=== PATIENT | male | born 1995 | race Caucasian/White ===

== ENCOUNTER 2019-10-20 22:07 | Emergency (ER) | payer SELFPAY ==
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
[2019-10-20 22:18] VITALS: BP 117/80; PULSE 117
[2019-10-20] MEDS ORDERED: Diphtheria,Pertussis(Acell),Tetanus Vaccine 0.5 ML Syringe IM ONE (22:23)
== END 2019-10-20 22:40 | disposition home or self-care (01) ==
LOC: JD.ED 22:07
DX: T23.202A Burn of second degree of left hand, unspecified site, initial encounter (principal); F32.9 Major depressive disorder, single episode, unspecified; Z79.899 Other long term (current) drug therapy; Z23 Encounter for immunization; X08.8XXA Exposure to other specified smoke, fire and flames, initial encounter
CPT/HCPCS: 16020; 90471; 90715; 99283

== ENCOUNTER 2020-02-23 09:06 | Emergency (ER) | payer BC ==
[2020-02-23] MEDS ORDERED: Ondansetron 4 MG Tab.DIS PO ONE (09:59)
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
[2020-02-23 10:51] VITALS: BP 115/80; PULSE 92
--- NOTE | 2020-02-25 10:24 | CT ---
PROCEDURE INFORMATION: Exam: CT Head Without Contrast Exam date and time: 02/23/2020 10:05 AM Age: 24 years old Clinical indication: Pain; Other: Frontal headache TECHNIQUE: Imaging protocol: Computed tomography of the head without contrast. COMPARISON: No relevant prior studies available. FINDINGS: Brain: Normal. No hemorrhage. Unremarkable white matter. No mass effect. Cerebral ventricles: No ventriculomegaly. Bones/joints: Unremarkable. No acute fracture. Paranasal sinuses: Mild mucoperiosteal thickening of the paranasal sinuses. Mastoid air cells: Visualized mastoid air cells are well aerated. Soft tissues: Unremarkable. IMPRESSION: Mild mucoperiosteal thickening of the paranasal sinuses but no evidence of acute intracranial pathology. Thank you for allowing us to participate in the care of your patient. Dictated and Authenticated by: Arlene Hutchinson MD 02/23/2020 11:37 AM Central Time ([place] & [place]) MTDMary
== END 2020-02-23 10:08 | disposition home or self-care (01) ==
LOC: JD.ED 09:06
DX: S06.0X9A Concussion with loss of consciousness of unspecified duration, initial encounter (principal); K92.0 Hematemesis; F90.9 Attention-deficit hyperactivity disorder, unspecified type; F32.9 Major depressive disorder, single episode, unspecified; F17.210 Nicotine dependence, cigarettes, uncomplicated; Z79.899 Other long term (current) drug therapy; W22.8XXA Striking against or struck by other objects, initial encounter
CPT/HCPCS: 70450; 99285; A9270; 99283

== ENCOUNTER 2020-02-29 05:55 | Emergency (ER) | payer BC ==
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
[2020-02-29] MEDS ORDERED: Ondansetron 4 MG Tab.DIS PO ONE (07:08)
[2020-02-29] MEDS ORDERED: FLU VACC QS2020-21(6MOS UP)/PF 60 MCG/0.5 ML SYRINGE IM ONE (07:15)
[2020-02-29] MEDS ORDERED: Sodium Chloride 0.9% 1,000 ML IV ONE (07:33)
--- NOTE | 2020-02-29 09:12 | CR ---
PROCEDURE INFORMATION: Exam: XR Chest, 2 Views Exam date and time: 02/29/2020 8:29 AM Age: 24 years old Clinical indication: Injury or trauma; Blunt trauma (contusions or hematomas); Patient HX: Fall, left lower chest pain TECHNIQUE: Imaging protocol: XR of the chest Views: 2 views. COMPARISON: No relevant prior studies available. FINDINGS: Lungs: 1 cm nodular density projecting in the left lower lung between the anterior 5th and 6th ribs. This could be a nipple shadow. Repeat frontal film nipple markers is recommended. No consolidation. Pleural space: Unremarkable. No pleural effusion. No pneumothorax. Heart/Mediastinum: Unremarkable. No cardiomegaly. Bones/joints: Thoracic curve, convex to the right. Reversal of the normal thoracic curve in anterior posterior dimensions. IMPRESSION: 1. Left lower lobe pulmonary nodule versus prominent nipple shadow. Recommend frontal film with nipple markers. 2. Reversal of normal AP thoracic curve, likely developmental. Thank you for allowing us to participate in the care of your patient. Dictated and Authenticated by: Leigh Ann Ni MD 02/29/2020 9:48 AM Central Time ([place] & [place]) DAVIS
[2020-02-29 09:28] VITALS: BP 120/70; PULSE 80
== END 2020-02-29 09:28 | disposition home or self-care (01) ==
LOC: JD.ED 05:55
DX: R55 Syncope and collapse (principal); F10.120 Alcohol abuse with intoxication, uncomplicated; R74.8 Abnormal levels of other serum enzymes; F17.210 Nicotine dependence, cigarettes, uncomplicated; Z23 Encounter for immunization
CPT/HCPCS: 36415; 71046; 80053; 80306; 80307; 83735; 85007; 85027; 85379; 90471; 90686; 93005; 99284; A9270; J7030; 93010; G0008

== ENCOUNTER 2020-06-27 01:02 | Emergency (ER) | payer OTHER, BC ==
[2020-06-27 01:13] VITALS: BP 128/92; PULSE 88
--- NOTE | 2020-06-27 01:37 | EDM.PDOC ---
ED HPI GENERAL MEDICAL PROBLEM - General Chief Complaint: Upper Extremity Injury/Pain Stated Complaint: FINGER INJURY RT HAND Time Seen by Provider: 06/27/20 01:22 Source of Information: Reports: Patient History Limitations: Reports: No Limitations - History of Present Illness INITIAL COMMENTS - FREE TEXT/NARRATIVE: Mr. Carpenter is a very pleasant 25-year-old man who now presents the ED after suffering a laceration to the distal pad of his right fifth finger, when a piece of metal fell on it while at work around 00:45 this morning. He is otherwise uninjured. The patient states that his last tetanus vaccination was less than 1 year ago. Here in the ED, the patient is found to be hemodynamically stable, afebrile, saturating 92% on room air. Other than minna's right fifth finger injury, the patient denies having a recent fever, chills, sore throat, ear pain, nasal or sinus congestion, cough, dyspnea, chest pain, palpitations, nausea, vomiting, constipation, diarrhea, abdominal pain, urinary symptoms, recent weight gain or weight loss, recent bloody bowel movements or black bowel movements, recent joint aches, headaches, or rashes. The patient's PCP is Dr. Troy Velazquez, at [facility]. He received an influenza vaccine on 02/29/2020. Right Finger-Little Pain Score (Numeric/FACES): 5 - Related Data Allergies Allergy/AdvReac Type Severity Reaction Status Date / Time No Known Allergies Allergy Verified 06/27/20 01:13 Home Meds: Home Meds . [No Known Home Meds] 02/29/20 [History] Past Medical History Gastrointestinal History: Reports: Gastritis (untreated) Psychiatric History: Reports: ADHD (untreated), Addiction (alcohol), Depression (untreated) - Past Surgical History HEENT Surgical History: Reports: Oral Surgery (dental extractions) Social & Family History - Tobacco Use Tobacco Use Status *Q: Current Every Day Tobacco User Years of Tobacco use: 10 Packs/Tins Daily: 0.4 Tobacco Use Comment: Started smoking at 15 yrs old - Caffeine Use Caffeine Use: Reports: None - Alcohol Use Alcohol Use History: Yes Days Per Week of Alcohol Use: 7 Number of Drinks Per Day: 8 Total Drinks Per Week: 56 Alcohol Use Frequency: Daily - Recreational Drug Use Recreational Drug Use: No - Living Situation & Occupation Living situation: Reports: , with Significant Other (Girlfriend) Occupation: Employed ([employer]) Review of Systems - Review of Systems Review Of Systems: Comprehensive ROS is negative, except as noted in HPI. ED EXAM, GENERAL - Physical Exam Exam: See Below Exam Limited By: No Limitations General Appearance: Alert, WD/WN, No Apparent Distress, Anxious Extremities: Other (There is an approximately 1 cm of laceration oriented tangentially to the axis of the patient's right fifth finger, over the volar distal pad. The laceration is irregular, with part of the laceration being full-thickness, part of it not, however, the edges of the wound appose each other. No bleedin) Course - Vital Signs Last Recorded V/S: Last Vital Signs Temp 36.7 C 06/27/20 01:09 Pulse 88 06/27/20 01:09 Resp 18 06/27/20 01:09 BP 128/92 H 06/27/20 01:09 Pulse Ox 99 06/27/20 01:09 - Re-Assessments/Exams Free Text/Narrative Re-Assessment/Exam: 06/27/20 01:32 As above, the patient suffered a laceration to the pad of his right fifth finger at work tonight when a piece of steel fell on it. The wound is a little jagged, parts of which appear to be full-thickness, other parts which are not, but the edges appose each other, therefore I do not see an indication for either sutures or even Dermabond. The wound should heal nicely if it is kept clean. I applied a bandage to the end of his finger. Departure - Departure Time of Disposition: 01:33 Disposition: Home, Self-Care 01 Condition: Good Clinical Impression: Laceration of finger, right - Discharge Information *PRESCRIPTION DRUG MONITORING PROGRAM REVIEWED*: Not Applicable *COPY OF PRESCRIPTION DRUG MONITORING REPORT IN PATIENT PETER: Not Applicable Instructions: Nonsutured Laceration Care Referrals: Troy Velazquez MD [Primary Care Provider] - Forms: ED Department Discharge Additional Instructions: You were seen in the emergency room after suffering a laceration to the pad of your right pinky finger, when a piece of metal fell on it at work. On examination, the wound is minor enough that sutures are not necessary. Keep the wound clean with ordinary soap and water when you bathe. Pat dry, then apply a clean bandage, daily. We do not recommend that you allow the wound to get wet or dirty in between bathing, however, if it does, rewash the wound, pat it dry, then apply a new clean bandage. You may take Tylenol or ibuprofen as needed for discomfort. If any other problems, please do not hesitate to return to the ER. Sepsis Event Note (ED) - Evaluation Sepsis Screening Result: No Definite Risk - Focused Exam Vital Signs: Vital Signs Temp Pulse Resp BP Pulse Ox 06/27/20 01:09 36.7 C 88 18 128/92 H 99
== END 2020-06-27 01:40 | disposition home or self-care (01) ==
LOC: JD.ED 01:02
DX: S61.216A Laceration without foreign body of right little finger without damage to nail, initial encounter (principal); Z72.0 Tobacco use; W20.8XXA Other cause of strike by thrown, projected or falling object, initial encounter
CPT/HCPCS: 99282

== ENCOUNTER 2020-10-01 14:47 | Emergency (ER) | payer BC, OTHER ==
--- NOTE | 2020-10-01 15:04 | EDM.PDOCBH ---
<Wero Landrum - Last Filed: 10/02/20 06:06> ED HPI GENERAL MEDICAL PROBLEM - General Chief Complaint: Drug or Alcohol Abuse Stated Complaint: DETOX Time Seen by Provider: 10/01/20 15:04 - Related Data Allergies Allergy/AdvReac Type Severity Reaction Status Date / Time bupropion [From Wellbutrin] AdvReac Severe Seizure Verified 10/01/20 15:03 Home Meds: Home Meds . [No Known Home Meds] 02/29/20 [History] COURSE, BEHAVIORAL HEALTH COMP - Course Medical Clearance: 10/02/20 06:06 The patient is awake. I evaluated him. He corrected that he ordinarily drinks 1/2 to 1 L of vodka or tequila per day, not 1.5 L. He states that his last period of sobriety was about 3 years ago, for 4 days, but he also states that he did not drink as much back then. He has never suffered withdrawal symptoms more severe than tremulousness. At present, he states that he feels shaky, and has mild abdominal pain, although he acknowledges that he chronically has abdominal pain. He states that he feels slightly nauseated, and also slightly hungry. He appears to be in no acute distress. The patient states that he would like to stop drinking, and that he has been considering doing so for the past 2 weeks. He states that he has been in contact with [facility], who recommended that he come to the ED to undergo "detox", and once medically stable, they would consider taking him to [facility]. Given that the patient's alcohol level was substantially elevated at 0.52 last night, yet he was able to walk and talk, this indicates a significant tolerance to alcohol. Despite his young age, no comorbidities (such as pneumonia), and no prior history of severe alcohol withdrawal symptoms, the patient is still at somewhat increased risk for the development of severe alcohol withdrawal, therefore I am recommending that we admit him to the hospital for the next day or 2 to see how he does. The patient is agreeable. 10/02/20 06:[address] Zepeda, Hospitalist, at 06:10. He accepted the patient for placement into observation on the medical floor, however, he would like us to swab the patient for the SARS-CoV-2 virus first. Departure - Departure Time of Disposition: 06:15 Disposition: Refer to Observation Condition: Good Clinical Impression: Alcohol dependence, daily use Alcohol intoxication Qualifiers: Complication of substance-induced condition: uncomplicated Qualified Code(s): F10.920 - Alcohol use, unspecified with intoxication, uncomplicated - Discharge Information *PRESCRIPTION DRUG MONITORING PROGRAM REVIEWED*: Not Applicable *COPY OF PRESCRIPTION DRUG MONITORING REPORT IN PATIENT PETER: Not Applicable Referrals: Troy Velazquez MD [Primary Care Provider] - Forms: ED Department Discharge <Wenceslao Alva - Last Filed: 10/02/20 07:54> ED HPI GENERAL MEDICAL PROBLEM - General Source of Information: Reports: Patient History Limitations: Reports: No Limitations - History of Present Illness INITIAL COMMENTS - FREE TEXT/NARRATIVE: 25-year-old male presents to the ED in the accompaniment of his father. He presents to the ED seeking help to stop drinking alcohol. He reports he is been drinking alcohol since age 15. He started drinking very heavily at age 20 and is continued to do so until now. He used to drink whiskey primarily but his girlfriend made him stop drinking whiskey as it changed his mood severely. Lately he has been drinking a combination of vodka and tequila. Last drink was approximately 20 minutes before coming to the ED. On average drinks a liter and a half daily. He reports dry heaves and vomiting sometimes with apparent blood in his emesis in the mornings. Is also appreciated chronic diarrhea with perhaps some dark looking stools at times. He states he drinks in the morning to take the tremors away. And calm his stomach. He rarely eats solid foods unless somebody cooks it for him. He appreciates that he is losing weight. He is unemployed. He smokes a pack of cigarettes at least daily. Denies any street drug use. Denies any history of IV drug abuse. He reports having seizures after stopping drinking alcohol in the past as well as hallucinations. Onset: Other (Chronic) Duration: Chronic (Chronic alcohol use) Location: Reports: Abdomen (Currently having some upper abdominal discomfort burning in nature. Mild associated nausea. No vomiting) Quality: Reports: Other Severity: Moderate Improves with: Reports: None, Other Worsens with: Reports: None Context: Reports: Other (Chronic alcoholism). Denies: Activity (Drinking more alcohol usually makes his stomach feel better), Exercise, Lifting, Sick Contact, Trauma Associated Symptoms: Reports: Cough, Loss of Appetite, Malaise, Nausea/Vomiting (Nausea with no vomiting), Weakness ( this morning). Denies: Confusion, Chest Pain, cough w sputum, Diaphoresis, Fever/Chills, Headaches, Rash, Seizure, Shortness of Breath, Syncope Treatments STATIONS SUPERINTENDENT: Reports: Other (see below) (None.) Past Medical History - Past Health History Medical/Surgical History: Denies Medical/Surgical History Other Cardiovascular History: palpitations Gastrointestinal History: Reports: Gastritis (untreated) Neurological History: Reports: Concussion Psychiatric History: Reports: ADHD (untreated), Addiction (alcohol), Depression (untreated) - Past Surgical History HEENT Surgical History: Reports: Oral Surgery (dental extractions) Social & Family History - Family History Family Medical History: No Pertinent Family History - Caffeine Use Caffeine Use: Reports: None - Living Situation & Occupation Living situation: Reports: , with Significant Other (Girlfriend) Occupation: Employed ([employer]) ED ROS GENERAL - Review of Systems Review Of Systems: See Below Constitutional: Reports: Malaise, Weakness, Fatigue, Decreased Appetite, Weight Loss. Denies: Fever, Chills HEENT: Reports: No Symptoms Respiratory: Reports: Shortness of Breath, Wheezing, Cough, Sputum. Denies: Pleuritic Chest Pain (Sometimes on heavy exertion. Occasional wheezing), Hemoptysis Cardiovascular: Reports: Dyspnea on Exertion. Denies: Chest Pain (Smoker's cough worse in the morning. Occasional brown sputum production), Blood Pressure Problem, Claudication, Edema, Lightheadedness, Orthopnea, Palpitations (Occasional on heavy exertion.) Endocrine: Reports: Fatigue GI/Abdominal: Reports: Abdominal Pain (Abdominal pain primarily epigastric right upper quadrant of the abdomen with no radiation into the back.), Other (Has no documented history of cirrhosis of the liver or pancreatitis) : Reports: Frequency Musculoskeletal: Reports: Back Pain Skin: Reports: Bruising (Appreciates that he bruises a bit easier than normal.) Neurological: Reports: Headache, Difficulty Walking, Weakness, Other (Recurrent falls when intoxicated.). Denies: Confusion, Dizziness, Numbness, Syncope, Tingling, Tremors (Does feel like he is offkilter walking at times.), Trouble Speaking, Change in Speech, Gait Disturbance Psychiatric: Reports: Anxiety, Depression, Mood Lability, Other (Poor sleeping with chronic insomnia.). Denies: Suicidal Ideation (Denies at this time. He admits he has had intermittent suicidal ideation over the years feels guilty about drinking.) Hematologic/Lymphatic: Reports: No Symptoms Immunologic: Reports: No Symptoms ED EXAM, BEHAVIORAL HEALTH - Physical Exam Exam: See Below Exam Limited By: Other (Mildly intoxicated at this time.) General Appearance: Alert, Mild Distress (He appears very tired. Strong smell of alcohol on his breath.), Other (Temperature is 37.1 degrees. Heart rate was 118 and sinus tachycardia on the monitor but quickly came down to 100/min. Respiratory of 20 with O2 sats of 97% room air. Initial BP was 147/103. It is currently 144/101 suggesting he may have an underlying hypertensive issue.) Eye Exam: Bilateral Eye: Conjunctival Injection (Bilaterally.), Nystagmus (Nystagmus on lateral gaze.), Periorbital Changes (Dark circles under both eyes combined with not sleeping well.), PERRL Throat/Mouth: No Airway Compromise, Other (Tongue is very dry and coated.). No: Normal Teeth ( Dentition is in very poor condition.), Normal Gums, Normal Oropharynx Head: Atraumatic (Oropharynx is diffusely erythematous from cigarette smoking), Normocephalic, Other Neck: Normal Inspection, Supple, Non-Tender, Full Range of Motion. No: Lymphadenopathy (L), Lymphadenopathy (R) Respiratory/Chest: Lungs Clear, Normal Breath Sounds, No Accessory Muscle Use, Respiratory Distress (Mild tachypnea at rest.). No: No Respiratory Distress, Decreased Breath Sounds, Rales, Rhonchi, Wheezing Cardiovascular: Normal Peripheral Pulses, No Edema (Tachycardia at 106/min on my exam.), No Gallop, No Murmur, No Rub, Tachycardia GI/Abdominal: Normal Bowel Sounds, Soft, No Organomegaly, No Abnormal Bruit, No Mass, Pelvis Stable, Tender (Tenderness in the epigastrium), Other (No surgical scars). No: Guarding, Rigid, Rebound (Male) Exam: No Hernia Back Exam: Normal Inspection, Full Range of Motion. No: CVA Tenderness (L), CVA Tenderness (R) Extremities: Normal Inspection, Normal Range of Motion, Non-Tender, No Pedal Edema, Other (Patient has an ecchymoses upper outer left arm and above his iliac crest from anterior to posteriorly crest on the right side with a superficial abrasion which he claims he fell and got hurt) Neurological: Alert, Normal Mood/Affect, CN II-XII Intact, Normal Cognition, No Motor/Sensory Deficits, Oriented x 3. No: Normal Reflexes Psychiatric: Alert, Normal Affect, Normal Cognition, Normal Mood, Oriented Skin Exam: Warm, Dry, Intact, Ecchymosis (8 cm x 8 cm superficial abrasion with ecchymoses above his anterior posterior iliac spine right side.) #1 Interpretation EKG Date: 10/01/20 Time: 15:24 Rhythm: Other (Sinus tachycardia) Rate (Beats/Min): 101 [place]: Normal P-Wave: Enlarged (Consider left atrial hypertrophy) QRS: Other (Borderline criteria for left ventricular hypertrophy likely normal for his age) ST-T: Other (Nonspecific T wave flattening V5 and V6.) QT: Normal EKG Interpretation Comments: Borderline ECG COURSE, BEHAVIORAL HEALTH COMP - Course Vital Signs: Last Vital Signs Temp 37.4 C 10/02/20 07:27 Pulse 80 10/02/20 07:27 Resp 14 10/02/20 07:27 BP 117/69 10/02/20 07:27 Pulse Ox 95 10/02/20 07:27 Orders, Labs, Meds: Active Orders 24 hr Category Date Time Status Admission Status [Patient Status] [ADT] Routine ADT 10/02/20 07:50 Ordered EKG Documentation Completion [RC] STAT Care 10/01/20 15:18 Active Oxygen Therapy, ED [RC] ASDIRECTED Care 10/01/20 16:15 Active Dextrose 5%-0.9% NaCl [Dextrose 5%-Normal Saline] 1,000 Med 10/02/20 07:15 Active ml IV ASDIRECTED Dextrose 5%-Lactated Ringers 1,000 ml Med 10/01/20 15:30 Active IV ASDIRECTED Lactated Ringers [Ringers, Lactated] 1,000 ml Med 10/01/20 16:45 Active IV ASDIRECTED Medication Orders Dextrose/Lactated Ringer's (Dextrose 5%-Lactated Ringers) 1,000 mls @ 999 mls/hr IV ASDIRECTED SUNDAR Last Admin: 10/01/20 15:33 Dose: 999 mls/hr Documented by: MORKJOR Lactated Ringer's (Ringers, Lactated) 1,000 mls @ 250 mls/hr IV ASDIRECTED [facility] Last Admin: 10/01/20 17:15 Dose: 250 mls/hr Documented by: KALEB Dextrose/Sodium Chloride (Dextrose 5%-Normal Saline) 1,000 mls @ 150 mls/hr IV ASDIRECTED [facility] Last Admin: 10/02/20 07:24 Dose: 150 mls/hr Documented by: MENDEZ Laboratory Tests 10/01/20 10/01/20 10/01/20 Range/Units 15:21 15:21 15:21 WBC 5.42 (4.23-9.07) K/mm3 RBC 4.96 (4.63-6.08) M/mm3 Hgb 15.7 D (13.7-17.5) gm/dl Hct 45.5 (40.1-51.0) % MCV 91.7 (79.0-92.2) fl MCH 31.7 (25.7-32.2) pg MCHC 34.5 (32.2-35.5) g/dl RDW Std Deviation 45.1 H (35.1-43.9) fL Plt Count 203 D (163-337) K/mm3 MPV 8.7 L (9.4-12.3) fl Neut % (Auto) 56.1 (34.0-67.9) % Lymph % (Auto) 30.4 (21.8-53.1) % [place] % (Auto) 7.7 (5.3-12.2) % Eos % (Auto) 4.1 (0.8-7.0) Baso % (Auto) 1.5 H (0.1-1.2) % Neut # (Auto) 3.04 (1.78-5.38) K/mm3 Lymph # (Auto) 1.65 (1.32-3.57) K/mm3 [place] # (Auto) 0.42 (0.30-0.82) K/mm3 Eos # (Auto) 0.22 (0.04-0.54) K/mm3 Baso # (Auto) 0.08 (0.01-0.08) K/mm3 PT 11.4 (9.7-12.0) SECONDS INR 1.07 APTT 25.9 (21.7-31.4) SECONDS Sodium 145 (136-145) mEq/L Potassium 3.8 (3.5-5.1) mEq/L Chloride 104 (98-107) mEq/L Carbon Dioxide 24 (21-32) mEq/L Anion Gap 20.8 H (5-15) BUN 9 (7-18) mg/dL Creatinine 0.9 (0.7-1.3) mg/dL Est Cr Clr Drug Dosing 120.02 mL/min Estimated GFR (MDRD) > 60 (>60) mL/min BUN/Creatinine Ratio 10.0 L (14-18) Glucose 143 H (70-99) mg/dL Calcium 8.4 L (8.5-10.1) mg/dL Magnesium 2.5 H (1.8-2.4) mg/dL Total Bilirubin 0.8 (0.2-1.0) mg/dL AST 114 H (15-37) U/L ALT 90 H (16-63) U/L Alkaline Phosphatase 85 (46-116) U/L C-Reactive Protein <0.2 (<1.0) mg/dL Total Protein 7.8 (6.4-8.2) g/dl Albumin 4.4 (3.4-5.0) g/dl Globulin 3.4 gm/dL Albumin/Globulin Ratio 1.3 (1-2) Lipase 116 (73-393) U/L Urine Color (Yellow) Urine Appearance (Clear) Urine pH (5.0-8.0) Ur Specific [place] (1.005-1.030) Urine Protein (Negative) Urine Glucose (UA) (Negative) Urine Ketones (Negative) Urine Occult Blood (Negative) Urine Nitrite (Negative) Urine Bilirubin (Negative) Urine Urobilinogen (0.2-1.0) Ur Leukocyte Esterase (Negative) Urine RBC (0-5) /hpf Urine WBC (0-5) /hpf Ur Squamous Epith Cells (0-5) /hpf Urine Bacteria (FEW) /hpf Urine Mucus (FEW) /hpf Urine Opiates Screen (GIHXJI=104) Ur Buprenorphine Scrn (CUTOFF=10) Ur Oxycodone Screen (FVE8SW=741) Urine Methadone Screen (BAD4XQ=553) Ur Propoxyphene Screen (JBMINE=487) Ur Barbiturates Screen (VFBKWO=305) Ur Tricyclics Screen (UIGKOH=278) Ur Phencyclidine Scrn (CUTOFF=25) Ur Amphetamine Screen (KMDKGJ=196) U Methamphetamines Scrn (KGCKRV=646) U Benzodiazepines Scrn (NTQXCK=904) U Cocaine Metab Screen (VVSIGQ=669) U Marijuana (THC) Screen (CUTOFF=50) Ethyl Alcohol 0.52 (0.00) gm% Hepatitis C Antibody (NEGATIVE) SARS-CoV-2 RNA (GOSIA) (NEGATIVE) 10/01/20 10/01/20 10/01/20 Range/Units 15:21 15:49 15:49 WBC (4.23-9.07) K/mm3 RBC (4.63-6.08) M/mm3 Hgb (13.7-17.5) gm/dl Hct (40.1-51.0) % MCV (79.0-92.2) fl MCH (25.7-32.2) pg MCHC (32.2-35.5) g/dl RDW Std Deviation (35.1-43.9) fL Plt Count (163-337) K/mm3 MPV (9.4-12.3) fl Neut % (Auto) (34.0-67.9) % Lymph % (Auto) (21.8-53.1) % [place] % (Auto) (5.3-12.2) % Eos % (Auto) (0.8-7.0) Baso % (Auto) (0.1-1.2) % Neut # (Auto) (1.78-5.38) K/mm3 Lymph # (Auto) (1.32-3.57) K/mm3 [place] # (Auto) (0.30-0.82) K/mm3 Eos # (Auto) (0.04-0.54) K/mm3 Baso # (Auto) (0.01-0.08) K/mm3 PT (9.7-12.0) SECONDS INR APTT (21.7-31.4) SECONDS Sodium (136-145) mEq/L Potassium (3.5-5.1) mEq/L Chloride (98-107) mEq/L Carbon Dioxide (21-32) mEq/L Anion Gap (5-15) BUN (7-18) mg/dL Creatinine (0.7-1.3) mg/dL Est Cr Clr Drug Dosing mL/min Estimated GFR (MDRD) (>60) mL/min BUN/Creatinine Ratio (14-18) Glucose (70-99) mg/dL Calcium (8.5-10.1) mg/dL Magnesium (1.8-2.4) mg/dL Total Bilirubin (0.2-1.0) mg/dL AST (15-37) U/L ALT (16-63) U/L Alkaline Phosphatase (46-116) U/L C-Reactive Protein (<1.0) mg/dL Total Protein (6.4-8.2) g/dl Albumin (3.4-5.0) g/dl Globulin gm/dL Albumin/Globulin Ratio (1-2) Lipase (73-393) U/L Urine Color Light yellow (Yellow) Urine Appearance Clear (Clear) Urine pH 6.0 (5.0-8.0) Ur Specific [place] 1.015 (1.005-1.030) Urine Protein Negative (Negative) Urine Glucose (UA) Negative (Negative) Urine Ketones Negative (Negative) Urine Occult Blood Negative (Negative) Urine Nitrite Negative (Negative) Urine Bilirubin Negative (Negative) Urine Urobilinogen 0.2 (0.2-1.0) Ur Leukocyte Esterase Negative (Negative) Urine RBC 0-5 (0-5) /hpf Urine WBC Not seen (0-5) /hpf Ur Squamous Epith Cells 0-5 (0-5) /hpf Urine Bacteria Not seen (FEW) /hpf Urine Mucus Not seen (FEW) /hpf Urine Opiates Screen Negative (XVSHZH=690) Ur Buprenorphine Scrn Negative (CUTOFF=10) Ur Oxycodone Screen Negative (VEY9JP=109) Urine Methadone Screen Negative (OHP4XR=344) Ur Propoxyphene Screen Negative (MAGVQY=736) Ur Barbiturates Screen Negative (SRDJVM=453) Ur Tricyclics Screen Negative (QMQTCK=263) Ur Phencyclidine Scrn Negative (CUTOFF=25) Ur Amphetamine Screen Negative (IVDHMH=456) U Methamphetamines Scrn Negative (OMEXBZ=670) U Benzodiazepines Scrn Negative (GSGMCC=278) U Cocaine Metab Screen Negative (SMVOFZ=265) U Marijuana (THC) Screen Negative (CUTOFF=50) Ethyl Alcohol (0.00) gm% Hepatitis C Antibody Negative (NEGATIVE) SARS-CoV-2 RNA (GOSIA) (NEGATIVE) 10/02/20 Range/Units 06:19 WBC (4.23-9.07) K/mm3 RBC (4.63-6.08) M/mm3 Hgb (13.7-17.5) gm/dl Hct (40.1-51.0) % MCV (79.0-92.2) fl MCH (25.7-32.2) pg MCHC (32.2-35.5) g/dl RDW Std Deviation (35.1-43.9) fL Plt Count (163-337) K/mm3 MPV (9.4-12.3) fl Neut % (Auto) (34.0-67.9) % Lymph % (Auto) (21.8-53.1) % [place] % (Auto) (5.3-12.2) % Eos % (Auto) (0.8-7.0) Baso % (Auto) (0.1-1.2) % Neut # (Auto) (1.78-5.38) K/mm3 Lymph # (Auto) (1.32-3.57) K/mm3 [place] # (Auto) (0.30-0.82) K/mm3 Eos # (Auto) (0.04-0.54) K/mm3 Baso # (Auto) (0.01-0.08) K/mm3 PT (9.7-12.0) SECONDS INR APTT (21.7-31.4) SECONDS Sodium (136-145) mEq/L Potassium (3.5-5.1) mEq/L Chloride (98-107) mEq/L Carbon Dioxide (21-32) mEq/L Anion Gap (5-15) BUN (7-18) mg/dL Creatinine (0.7-1.3) mg/dL Est Cr Clr Drug Dosing mL/min Estimated GFR (MDRD) (>60) mL/min BUN/Creatinine Ratio (14-18) Glucose (70-99) mg/dL Calcium (8.5-10.1) mg/dL Magnesium (1.8-2.4) mg/dL Total Bilirubin (0.2-1.0) mg/dL AST (15-37) U/L ALT (16-63) U/L Alkaline Phosphatase (46-116) U/L C-Reactive Protein (<1.0) mg/dL Total Protein (6.4-8.2) g/dl Albumin (3.4-5.0) g/dl Globulin gm/dL Albumin/Globulin Ratio (1-2) Lipase (73-393) U/L Urine Color (Yellow) Urine Appearance (Clear) Urine pH (5.0-8.0) Ur Specific [place] (1.005-1.030) Urine Protein (Negative) Urine Glucose (UA) (Negative) Urine Ketones (Negative) Urine Occult Blood (Negative) Urine Nitrite (Negative) Urine Bilirubin (Negative) Urine Urobilinogen (0.2-1.0) Ur Leukocyte Esterase (Negative) Urine RBC (0-5) /hpf Urine WBC (0-5) /hpf Ur Squamous Epith Cells (0-5) /hpf Urine Bacteria (FEW) /hpf Urine Mucus (FEW) /hpf Urine Opiates Screen (PDKPFP=166) Ur Buprenorphine Scrn (CUTOFF=10) Ur Oxycodone Screen (TZN1DP=412) Urine Methadone Screen (ZXS8FV=494) Ur Propoxyphene Screen (VEMRCE=469) Ur Barbiturates Screen (KHRTGX=225) Ur Tricyclics Screen (XXTGOO=090) Ur Phencyclidine Scrn (CUTOFF=25) Ur Amphetamine Screen (KGCGQB=828) U Methamphetamines Scrn (KRRKWD=923) U Benzodiazepines Scrn (SQGUTL=048) U Cocaine Metab Screen (PJELWH=537) U Marijuana (THC) Screen (CUTOFF=50) Ethyl Alcohol (0.00) gm% Hepatitis C Antibody (NEGATIVE) SARS-CoV-2 RNA (GOSIA) Negative (NEGATIVE) Medications Generic Name Dose Route Start Last Admin Trade Name Freq PRN Reason Stop Dose Admin Dextrose/Lactated Ringer's 1,000 mls @ 999 mls/hr 10/01/20 15:30 10/01/20 15:33 Dextrose 5%-Lactated Ringers IV 999 mls/hr ASDIRECTED SUNDAR Administration Lactated Ringer's 1,000 mls @ 250 mls/hr 10/01/20 16:45 10/01/20 17:15 Ringers, Lactated IV 250 mls/hr ASDIRECTED SUNDAR Administration Dextrose/Sodium Chloride 1,000 mls @ 150 mls/hr 10/02/20 07:15 10/02/20 07:24 Dextrose 5%-Normal Saline IV 150 mls/hr ASDIRECTED SUNDAR Administration Discontinued Medications Generic Name Dose Route Start Last Admin Trade Name Ekaterina PRMyriam Reason Stop Dose Admin Diphenhydramine HCl 12.5 mg 10/01/20 15:17 10/01/20 15:36 Diphenhydramine 50 Mg/Ml Sdv IVPUSH 10/01/20 15:18 12.5 mg ONETIME ONE Administration Lorazepam 1 mg 10/01/20 15:17 10/01/20 15:33 Lorazepam 2 Mg/Ml Sdv IVPUSH 10/01/20 15:18 1 mg ONETIME ONE Administration Lorazepam 1 mg 10/02/20 07:09 10/02/20 07:22 Lorazepam 2 Mg/Ml Sdv IVPUSH 10/02/20 07:10 1 mg ONETIME ONE Administration Metoclopramide HCl 10 mg 10/01/20 15:17 10/01/20 15:37 Metoclopramide 10 Mg/2 Ml Sdv IVPUSH 10/01/20 15:18 10 mg ONETIME ONE Administration Metoclopramide HCl 7.5 mg 10/02/20 07:09 10/02/20 07:18 Metoclopramide 10 Mg/2 Ml Sdv IVPUSH 10/02/20 07:10 7.5 mg ONETIME ONE Administration Pantoprazole Sodium 40 mg 10/01/20 15:19 10/01/20 15:37 Pantoprazole 40 Mg Vial IVPUSH 10/01/20 15:20 40 mg ONETIME ONE Administration Thiamine HCl 100 mg 10/01/20 15:16 10/01/20 15:35 Thiamine 200 Mg/2 Ml Mdv IVPUSH 10/01/20 15:17 100 mg ONETIME ONE Administration Thiamine HCl 100 mg 10/02/20 07:09 10/02/20 07:20 Thiamine 200 Mg/2 Ml Mdv IVPUSH 10/02/20 07:10 100 mg ONETIME ONE Administration Re-Assessment/Re-Exam: 25-year-old male attends the ED in the accompaniment of his father requesting help to stop drinking alcohol. He apparently is still employed at [employer]. He has been drinking alcohol heavily since age 20 but was drinking alcohol off and on since age 15. Currently drinking about a liter and a half of tequila or vodka daily. Has significant morning tremors and dry heaves with occasional flecks of blood. Stools are usually chronically on the loose side semiformed to diarrhea. He is losing weight and suffering malnutrition as he rarely eats. They have spoken with marielena peña this morning but I am not sure that any formal arrangement with admission to [facility] bed was planned. Plan he will have routine labs for medical clearance ordered. Re-Assessment/Re-Exam Date: 10/01/20 (. White count is 5.42 with 56% neutrophils on the auto differential. Hemoglobin is 15.7 with hematocrit of 45.5. MCV is 91.7. Platelet count 203,000. PT is 11.4 with an INR of 1.07 slightly elevated. PTT is 25.9. Hepatitis C antibody is negative.) Re-Assessment/Re-Exam Time: 16:44 (Chemistry is back. Sodium is 145 with a potassium of 3.8. Chloride 104 the bicarb of 24. Anion gap is elevated at 20.8. BUN is 9 with a creatinine of 0.9. GFR is greater than 60. Glucose is 143 calcium is 8.4. This is slightly low from not eating. Magnesium is 2.5 total bilirubin 0.8 with an AST of 114 and ALT of 90. Alkaline phosphatase is 85. C- reactive protein less than 0.2. Total protein 7.8 with an albumin fraction of 4.4 lipase 116. Urinalysis is completely negative for any signs of infection. Urine drug screen also proved to be negative. His blood alcohol is markedly elevated at 0.52 g% at this level he will be proximately 12 hours before he is around 0.20 g%. He will thus be staying in the emergency room for observation status. Marielena peña will come and speak with him first thing in the morning with a view to going to the residential crisis center. At this level I suspect he is at high risk for symptoms of detoxification at present he is sleeping and in fact became somewhat hypoxic after Reglan Benadryl and Ativan 1 mg. He is currently on oxygen at 3 3 L/min by nasal cannula.) Medical Clearance: 10/01/20 19:21 I have discussed the case of this young man with Dr. Landrum as it is change of shift. He is likely going to be here in the morning when I return for the next shift. The plan is to have [facility] assess some tomorrow morning with a view to going to [facility] bed for detox. 10/02/20 07:03 Patient slept all night with no further need for Ativan overnight. Awakened around [address] Landrum to have the patient admitted to the hospital for detox. Patient is feeling generalized tremulousness. Nurses report that he is also mildly diaphoretic and tachycardic. Early signs of alcohol withdrawal are evident. He is complaining of mild nausea as well. Plan IV will be D5 normal saline 150 mils per hour. Given Reglan 7.5 mg IV for nausea relief and Ativan 1 mg IV for alcohol withdrawal. He will be admitted to the [facility] surgery floor under observation under the care of hospitalist Dr Zepeda. 10/02/20 07:53 COVID-19 screen is negative. Sepsis Event Note (ED) - Evaluation Sepsis Screening Result: No Definite Risk - Focused Exam Vital Signs: Vital Signs Temp Pulse Resp BP Pulse Ox 10/02/20 07:27 37.4 C 80 14 117/69 95 - My Orders Last 24 Hours: My Active Orders 10/01/20 15:18 EKG Documentation Completion [RC] STAT 10/01/20 15:30 Dextrose 5%-Lactated Ringers 1,000 ml IV ASDIRECTED 10/01/20 16:15 Oxygen Therapy, ED [RC] ASDIRECTED 10/01/20 16:45 Lactated Ringers [Ringers, Lactated] 1,000 ml IV ASDIRECTED 10/02/20 07:15 Dextrose 5%-0.9% NaCl [Dextrose 5%-Normal Saline] 1,000 ml IV ASDIRECTED 10/02/20 07:50 Admission Status [Patient Status] [ADT] Routine - Assessment/Plan Last 24 Hours: My Active Orders 10/01/20 15:18 EKG Documentation Completion [RC] STAT 10/01/20 15:30 Dextrose 5%-Lactated Ringers 1,000 ml IV ASDIRECTED 10/01/20 16:15 Oxygen Therapy, ED [RC] ASDIRECTED 10/01/20 16:45 Lactated Ringers [Ringers, Lactated] 1,000 ml IV ASDIRECTED 10/02/20 07:15 Dextrose 5%-0.9% NaCl [Dextrose 5%-Normal Saline] 1,000 ml IV ASDIRECTED 10/02/20 07:50 Admission Status [Patient Status] [ADT] Routine
[2020-10-01] MEDS ORDERED: Thiamine 200 MG/2 ML MDV IVPUSH ONE (15:16)
[2020-10-01] MEDS ORDERED: diphenhydrAMINE 50 MG/ML SDV IVPUSH ONE (15:17)
[2020-10-01] MEDS ORDERED: LORazepam 2 MG/ML SDV IVPUSH ONE (15:17)
[2020-10-01] MEDS ORDERED: Metoclopramide 10 MG/2 ML SDV IVPUSH ONE (15:17)
[2020-10-01] MEDS ORDERED: Pantoprazole 40 MG Vial IVPUSH ONE (15:19)
[2020-10-01] MEDS ORDERED: Dextrose 5%-Lactated Ringers 1,000 ML IV SCH (15:30)
[2020-10-01] MEDS ORDERED: Lactated Ringers 1,000 ML IV SCH (16:45)
[2020-10-02] MEDS ORDERED: Metoclopramide 10 MG/2 ML SDV IVPUSH ONE ×2 (07:09→14:37)
[2020-10-02] MEDS ORDERED: Thiamine 200 MG/2 ML MDV IVPUSH ONE (07:09)
[2020-10-02] MEDS ORDERED: LORazepam 2 MG/ML SDV IVPUSH ONE ×2 (07:09→14:38)
[2020-10-02] MEDS ORDERED: Dextrose 5%-0.9% NaCl 1,000 ML IV SCH (07:15)
--- NOTE | 2020-10-02 07:24 | PCM.HP.2 ---
H&P History of Present Illness - General Date of Service: 10/02/20 Source of Information: Patient, Provider, RN, RN Notes Reviewed History Limitations: Reports: No Limitations - Related Data Allergies/Adverse Reactions: Allergies Allergy/AdvReac Type Severity Reaction Status Date / Time bupropion [From Wellbutrin] AdvReac Severe Seizure Verified 10/01/20 15:03 Home Medications: Home Meds . [No Known Home Meds] 02/29/20 [History] Past Medical History - Past Health History Medical/Surgical History: Denies Medical/Surgical History Other Cardiovascular History: palpitations Gastrointestinal History: Reports: Gastritis Neurological History: Reports: Concussion, Seizure Psychiatric History: Reports: ADHD, Addiction, Depression - Past Surgical History HEENT Surgical History: Reports: Oral Surgery (dental extractions) Social & Family History - Family History Family Medical History: No Pertinent Family History - Tobacco Use Tobacco Use Status *Q: Current Every Day Tobacco User Years of Tobacco use: 20 Packs/Tins Daily: 5 - Caffeine Use Caffeine Use: Reports: None - Recreational Drug Use Recreational Drug Use: No - Living Situation & Occupation Living situation: Reports: , with Significant Other (Girlfriend) Occupation: Employed ([employer]) H&P Review of Systems - Review of Systems: Review Of Systems: See Below Exam - Exam Exam: See Below - Vital Signs Vital Signs: Last Vital Signs Temp 98.7 F 10/01/20 14:59 Pulse 82 10/01/20 18:45 Resp 20 10/01/20 18:45 BP 116/56 L 10/01/20 18:45 Pulse Ox 99 10/01/20 18:45 Weight: 149 lb 1.6 oz - Patient Data Lab Results Last 24 hrs: Laboratory Results - last 24 hr 10/01/20 10/01/20 10/01/20 Range/Units 15:21 15:21 15:21 WBC 5.42 (4.23-9.07) K/mm3 RBC 4.96 (4.63-6.08) M/mm3 Hgb 15.7 D (13.7-17.5) gm/dl Hct 45.5 (40.1-51.0) % MCV 91.7 (79.0-92.2) fl MCH 31.7 (25.7-32.2) pg MCHC 34.5 (32.2-35.5) g/dl RDW Std Deviation 45.1 H (35.1-43.9) fL Plt Count 203 D (163-337) K/mm3 MPV 8.7 L (9.4-12.3) fl Neut % (Auto) 56.1 (34.0-67.9) % Lymph % (Auto) 30.4 (21.8-53.1) % Nuckolls % (Auto) 7.7 (5.3-12.2) % Eos % (Auto) 4.1 (0.8-7.0) Baso % (Auto) 1.5 H (0.1-1.2) % Neut # (Auto) 3.04 (1.78-5.38) K/mm3 Lymph # (Auto) 1.65 (1.32-3.57) K/mm3 [place]uckolls # (Auto) 0.42 (0.30-0.82) K/mm3 Eos # (Auto) 0.22 (0.04-0.54) K/mm3 Baso # (Auto) 0.08 (0.01-0.08) K/mm3 PT 11.4 (9.7-12.0) SECONDS INR 1.07 APTT 25.9 (21.7-31.4) SECONDS Sodium 145 (136-145) mEq/L Potassium 3.8 (3.5-5.1) mEq/L Chloride 104 (98-107) mEq/L Carbon Dioxide 24 (21-32) mEq/L Anion Gap 20.8 H (5-15) BUN 9 (7-18) mg/dL Creatinine 0.9 (0.7-1.3) mg/dL Est Cr Clr Drug Dosing 120.02 mL/min Estimated GFR (MDRD) > 60 (>60) mL/min BUN/Creatinine Ratio 10.0 L (14-18) Glucose 143 H (70-99) mg/dL Calcium 8.4 L (8.5-10.1) mg/dL Magnesium 2.5 H (1.8-2.4) mg/dL Total Bilirubin 0.8 (0.2-1.0) mg/dL AST 114 H (15-37) U/L ALT 90 H (16-63) U/L Alkaline Phosphatase 85 (46-116) U/L C-Reactive Protein <0.2 (<1.0) mg/dL Total Protein 7.8 (6.4-8.2) g/dl Albumin 4.4 (3.4-5.0) g/dl Globulin 3.4 gm/dL Albumin/Globulin Ratio 1.3 (1-2) Lipase 116 (73-393) U/L Urine Color (Yellow) Urine Appearance (Clear) Urine pH (5.0-8.0) Ur Specific Wharton (1.005-1.030) Urine Protein (Negative) Urine Glucose (UA) (Negative) Urine Ketones (Negative) Urine Occult Blood (Negative) Urine Nitrite (Negative) Urine Bilirubin (Negative) Urine Urobilinogen (0.2-1.0) Ur Leukocyte Esterase (Negative) Urine RBC (0-5) /hpf Urine WBC (0-5) /hpf Ur Squamous Epith Cells (0-5) /hpf Urine Bacteria (FEW) /hpf Urine Mucus (FEW) /hpf Urine Opiates Screen (JPDDDL=277) Ur Buprenorphine Scrn (CUTOFF=10) Ur Oxycodone Screen (CEP1RV=156) Urine Methadone Screen (XCI5ES=488) Ur Propoxyphene Screen (HZPVHW=392) Ur Barbiturates Screen (UZHQFX=697) Ur Tricyclics Screen (VTFFXM=010) Ur Phencyclidine Scrn (CUTOFF=25) Ur Amphetamine Screen (PFQKTG=743) U Methamphetamines Scrn (IXIUIT=867) U Benzodiazepines Scrn (LHDARR=435) U Cocaine Metab Screen (BWNLVP=021) U Marijuana (THC) Screen (CUTOFF=50) Ethyl Alcohol 0.52 (0.00) gm% Hepatitis C Antibody (NEGATIVE) 10/01/20 10/01/20 10/01/20 Range/Units 15:21 15:49 15:49 WBC (4.23-9.07) K/mm3 RBC (4.63-6.08) M/mm3 Hgb (13.7-17.5) gm/dl Hct (40.1-51.0) % MCV (79.0-92.2) fl MCH (25.7-32.2) pg MCHC (32.2-35.5) g/dl RDW Std Deviation (35.1-43.9) fL Plt Count (163-337) K/mm3 MPV (9.4-12.3) fl Neut % (Auto) (34.0-67.9) % Lymph % (Auto) (21.8-53.1) % Nuckolls % (Auto) (5.3-12.2) % Eos % (Auto) (0.8-7.0) Baso % (Auto) (0.1-1.2) % Neut # (Auto) (1.78-5.38) K/mm3 Lymph # (Auto) (1.32-3.57) K/mm3 [place]uckolls # (Auto) (0.30-0.82) K/mm3 Eos # (Auto) (0.04-0.54) K/mm3 Baso # (Auto) (0.01-0.08) K/mm3 PT (9.7-12.0) SECONDS INR APTT (21.7-31.4) SECONDS Sodium (136-145) mEq/L Potassium (3.5-5.1) mEq/L Chloride (98-107) mEq/L Carbon Dioxide (21-32) mEq/L Anion Gap (5-15) BUN (7-18) mg/dL Creatinine (0.7-1.3) mg/dL Est Cr Clr Drug Dosing mL/min Estimated GFR (MDRD) (>60) mL/min BUN/Creatinine Ratio (14-18) Glucose (70-99) mg/dL Calcium (8.5-10.1) mg/dL Magnesium (1.8-2.4) mg/dL Total Bilirubin (0.2-1.0) mg/dL AST (15-37) U/L ALT (16-63) U/L Alkaline Phosphatase (46-116) U/L C-Reactive Protein (<1.0) mg/dL Total Protein (6.4-8.2) g/dl Albumin (3.4-5.0) g/dl Globulin gm/dL Albumin/Globulin Ratio (1-2) Lipase (73-393) U/L Urine Color Light yellow (Yellow) Urine Appearance Clear (Clear) Urine pH 6.0 (5.0-8.0) Ur Specific [place]arton 1.015 (1.005-1.030) Urine Protein Negative (Negative) Urine Glucose (UA) Negative (Negative) Urine Ketones Negative (Negative) Urine Occult Blood Negative (Negative) Urine Nitrite Negative (Negative) Urine Bilirubin Negative (Negative) Urine Urobilinogen 0.2 (0.2-1.0) Ur Leukocyte Esterase Negative (Negative) Urine RBC 0-5 (0-5) /hpf Urine WBC Not seen (0-5) /hpf Ur Squamous Epith Cells 0-5 (0-5) /hpf Urine Bacteria Not seen (FEW) /hpf Urine Mucus Not seen (FEW) /hpf Urine Opiates Screen Negative (DWIXLI=862) Ur Buprenorphine Scrn Negative (CUTOFF=10) Ur Oxycodone Screen Negative (BVD1TT=201) Urine Methadone Screen Negative (IXL3OW=764) Ur Propoxyphene Screen Negative (CJRQXH=149) Ur Barbiturates Screen Negative (DWZYQB=007) Ur Tricyclics Screen Negative (VODGOK=105) Ur Phencyclidine Scrn Negative (CUTOFF=25) Ur Amphetamine Screen Negative (FRMLWZ=778) U Methamphetamines Scrn Negative (ONDJHF=870) U Benzodiazepines Scrn Negative (UIZOGK=520) U Cocaine Metab Screen Negative (FYEYAP=164) U Marijuana (THC) Screen Negative (CUTOFF=50) Ethyl Alcohol (0.00) gm% Hepatitis C Antibody Negative (NEGATIVE) Result Diagrams: 10/01/20 15:21 10/01/20 15:21 Sepsis Event Note - Evaluation Sepsis Screening Result: No Definite Risk Problem List Initiated/Reviewed/Updated: Yes Orders Last 24hrs: Active Orders 24 hr Category Date Time Status EKG Documentation Completion [RC] STAT Care 10/01/20 15:18 Active Oxygen Therapy, ED [RC] ASDIRECTED Care 10/01/20 16:15 Active CORONAVIRUS COVID-19 GOSIA [MOLEC] Stat Lab 10/02/20 06:19 Received Dextrose 5%-0.9% NaCl [Dextrose 5%-Normal Saline] 1,000 Med 10/02/20 07:15 Active ml IV ASDIRECTED Dextrose 5%-Lactated Ringers 1,000 ml Med 10/01/20 15:30 Active IV ASDIRECTED Lactated Ringers [Ringers, Lactated] 1,000 ml Med 10/01/20 16:45 Active IV ASDIRECTED Medication Orders Dextrose/Lactated Ringer's (Dextrose 5%-Lactated Ringers) 1,000 mls @ 999 mls/hr IV ASDIRECTED SUNDAR Last Admin: 10/01/20 15:33 Dose: 999 mls/hr Documented by: SYDNIE Lactated Ringer's (Ringers, Lactated) 1,000 mls @ 250 mls/hr IV ASDIRECTED SUNDAR Last Admin: 10/01/20 17:15 Dose: 250 mls/hr Documented by: KALEB Dextrose/Sodium Chloride (Dextrose 5%-Normal Saline) 1,000 mls @ 150 mls/hr IV ASDIRECTED SUNDAR - Mortality Measure Prognosis:: Good
[2020-10-02] MEDS ORDERED: Acetaminophen 325 MG Tab PO PRN (08:01)
[2020-10-02] MEDS ORDERED: Ondansetron 4 MG/2 ML SDV IV PRN (08:01)
[2020-10-02] MEDS ORDERED: LORazepam 2 MG/ML SDV IVPUSH PRN ×2 (08:03→08:04)
[2020-10-02] MEDS ORDERED: Pantoprazole 40 MG Vial IVPUSH ONE (08:29)
[2020-10-02] MEDS ORDERED: Thiamine 100 MG Tab PO SCH (09:00)
[2020-10-02] MEDS ORDERED: Multivitamin Tab PO SCH (09:00)
[2020-10-02] MEDS ORDERED: Folic Acid 1 MG Tab PO SCH (09:00)
[2020-10-02] MEDS ORDERED: chlordiazePOXIDE 25 MG Cap PO SCH (09:00)
[2020-10-02] MEDS ORDERED: Dextrose 5%-Lactated Ringers 1,000 ML IV SCH (13:45)
[2020-10-02] MEDS ORDERED: Acetaminophen 325 MG Tab PO ONE (17:40)
[2020-10-02 18:01] VITALS: BP 107/70; PULSE 80
[2020-10-03] MEDS ORDERED: Thiamine 100 MG Tab PO SCH (09:00)
== END 2020-10-02 19:51 | disposition other institution (70) ==
LOC: JD.ED 14:47 → UNDOADMIN 10-02 07:50 → JD.MS 10-02 07:50
DX: F10.229 Alcohol dependence with intoxication, unspecified (principal); S30.810A Abrasion of lower back and pelvis, initial encounter; Z20.822 Contact with and (suspected) exposure to COVID-19; F17.210 Nicotine dependence, cigarettes, uncomplicated; Y90.6 Blood alcohol level of 120-199 mg/100 ml; X58.XXXA Exposure to other specified factors, initial encounter
CPT/HCPCS: 36415; 80053; 80306; 80307; 81001; 83690; 83735; 85025; 85610; 85730; 86140; 86803; 87635; 93005; 96374; 96375; 99285; A9270; C9113; J1200; J2060; J2765; J3411; J7042; J7120; J7121; 93010; U0002

== ENCOUNTER 2020-10-03 11:46 | Emergency (ER) | payer BC ==
[2020-10-03 11:54] VITALS: BP 137/87
[2020-10-03] MEDS ORDERED: LORazepam 0.5 MG Tab PO ONE (12:12)
--- NOTE | 2020-10-03 12:18 | EDM.PDOC ---
ED HPI GENERAL MEDICAL PROBLEM - General Chief Complaint: Drug or Alcohol Abuse Stated Complaint: DETOX Time Seen by Provider: 10/03/20 11:52 Source of Information: Reports: Patient, Old Records (previous visit from 2 days ago) History Limitations: Reports: No Limitations - History of Present Illness INITIAL COMMENTS - FREE TEXT/NARRATIVE: Patient is a 25-year-old male who presents to the ER for the evaluation of his alcohol withdrawal symptoms. Patient was evaluated in this ER roughly 2 days ago, and was found to have a blood alcohol level is 0.52, he was supposed to be admitted to the hospital however we had no ICU bed, and he was discharged home with plan to follow-up with [facility]. Patient notes that he did go home, filled the medications and took them as prescribed, and he showed up to [facility] this morning for further detox help. They did do CIWAA scale, and told him that his numbers were too high that he had to come to the ER for medical christiano arance. He was not aware of what the CIWAA scale was. He notes that he has some baseline tremulousness, slight nausea, and a slight headache however he states that when he went home, he hugged his family, and then went to bed. He has not had interaction with any other people other than going to [facility] today. Patient states that the staff at [facility], did take his medications; with plans for him to return, so he did not get his Ativan dose at around 10 AM. He is having no fevers or chills, cough/shortness of breath, or any sort of abdomen or chest pain. He states he has never tried to stop drinking alcohol however he has significantly cut back in the past. He has had no history of alcohol withdrawal seizures. States that he has not drank alcohol since he left the hospital. He recently ate breakfast prior to coming to [facility] in the ER. - Related Data Allergies Allergy/AdvReac Type Severity Reaction Status Date / Time bupropion [From Wellbutrin] AdvReac Severe Seizure Verified 10/03/20 11:55 Home Meds: Home Meds LORazepam [Ativan] 1 mg PO ASDIRECTED #5 tab 10/03/20 [Rx] Omeprazole 20 mg PO BEDTIME 10/03/20 [History] Ondansetron [Zofran ODT] 4 mg PO Q8H #10 tab.dis 10/03/20 [Rx] Past Medical History Cardiovascular History: Reports: Other (See Below) Other Cardiovascular History: palpitations Gastrointestinal History: Reports: Gastritis Neurological History: Reports: Concussion, Seizure Psychiatric History: Reports: ADHD, Addiction, Depression - Past Surgical History HEENT Surgical History: Reports: Oral Surgery Other HEENT Surgeries/Procedures: wisdom teeth removal Social & Family History - Family History Family Medical History: No Pertinent Family History - Tobacco Use Tobacco Use Status *Q: Current Every Day Tobacco User Years of Tobacco use: 15 Packs/Tins Daily: 0.5 - Caffeine Use Caffeine Use: Reports: None - Alcohol Use Days Per Week of Alcohol Use: 7 Number of Drinks Per Day: 1 Total Drinks Per Week: 7 Date of Last Drink: 10/01/20 Time of Last Drink: 14:00 - Recreational Drug Use Recreational Drug Use: No - Living Situation & Occupation Living situation: Reports: , with Significant Other (Girlfriend) Occupation: Employed ([employer]) ED ROS GENERAL - Review of Systems Review Of Systems: Comprehensive ROS is negative, except as noted in HPI. ED EXAM, GENERAL - Physical Exam Exam: See Below Exam Limited By: No Limitations General Appearance: Alert, WD/WN, No Apparent Distress, Other (has mild baseline tremulousness noted) Eye Exam: Bilateral Eye: Normal Inspection, PERRL Throat/Mouth: Normal Inspection, Normal Lips, Normal Teeth, Normal Gums, Normal Oropharynx, Normal Voice, No Airway Compromise Head: Atraumatic, Normocephalic Neck: Normal Inspection Respiratory/Chest: No Respiratory Distress, Lungs Clear, Normal Breath Sounds, No Accessory Muscle Use, Chest Non-Tender Cardiovascular: Normal Peripheral Pulses, Regular Rate, Rhythm, No Edema Peripheral Pulses: 2+: Radial (L), Radial (R) GI/Abdominal: Normal Bowel Sounds, Soft, Non-Tender, No Distention, No Mass Extremities: Normal Inspection, Normal Capillary Refill Neurological: Alert, Oriented, Normal Cognition, No Motor/Sensory Deficits Psychiatric: Normal Affect, Normal Mood Skin Exam: Warm, Dry, Intact, Normal Color, No Rash Course - Vital Signs Last Recorded V/S: Last Vital Signs Temp 96.9 F 10/03/20 11:54 Pulse 122 H 10/03/20 11:54 Resp 20 10/03/20 11:54 BP 137/87 10/03/20 11:54 Pulse Ox 98 10/03/20 11:54 - Orders/Labs/Meds Labs: Laboratory Tests 10/03/20 10/03/20 10/03/20 Range/Units 12:00 12:20 12:20 WBC 4.48 (4.23-9.07) K/mm3 RBC 4.90 (4.63-6.08) M/mm3 Hgb 15.5 (13.7-17.5) gm/dl Hct 44.7 (40.1-51.0) % MCV 91.2 (79.0-92.2) fl MCH 31.6 (25.7-32.2) pg MCHC 34.7 (32.2-35.5) g/dl RDW Std Deviation 43.1 (35.1-43.9) fL Plt Count 167 (163-337) K/mm3 MPV 9.5 (9.4-12.3) fl Neut % (Auto) 74.6 H (34.0-67.9) % Lymph % (Auto) 13.6 L (21.8-53.1) % [place] % (Auto) 10.3 (5.3-12.2) % Eos % (Auto) 1.1 (0.8-7.0) Baso % (Auto) 0.4 (0.1-1.2) % Neut # (Auto) 3.34 (1.78-5.38) K/mm3 Lymph # (Auto) 0.61 L (1.32-3.57) K/mm3 [place] # (Auto) 0.46 (0.30-0.82) K/mm3 Eos # (Auto) 0.05 (0.04-0.54) K/mm3 Baso # (Auto) 0.02 (0.01-0.08) K/mm3 Sodium 139 (136-145) mEq/L Potassium 3.7 (3.5-5.1) mEq/L Chloride 99 (98-107) mEq/L Carbon Dioxide 28 (21-32) mEq/L Anion Gap 15.7 H (5-15) BUN 6 L (7-18) mg/dL Creatinine 1.1 (0.7-1.3) mg/dL Est Cr Clr Drug Dosing 98.79 mL/min Estimated GFR (MDRD) > 60 (>60) mL/min BUN/Creatinine Ratio 5.5 L (14-18) Glucose 153 H (70-99) mg/dL Calcium 9.5 (8.5-10.1) mg/dL Magnesium 1.6 L (1.8-2.4) mg/dL Total Bilirubin 1.6 H (0.2-1.0) mg/dL AST 57 H (15-37) U/L ALT 64 H (16-63) U/L Alkaline Phosphatase 82 (46-116) U/L Total Protein 7.7 (6.4-8.2) g/dl Albumin 4.4 (3.4-5.0) g/dl Globulin 3.3 gm/dL Albumin/Globulin Ratio 1.3 (1-2) Urine Opiates Screen Negative (GXLZDZ=429) Ur Buprenorphine Scrn Negative (CUTOFF=10) Ur Oxycodone Screen Negative (JXV4YC=630) Urine Methadone Screen Negative (NYE1EB=649) Ur Propoxyphene Screen Negative (WJGCGL=439) Ur Barbiturates Screen Negative (SXTSEV=811) Ur Tricyclics Screen Negative (ZAMKYS=354) Ur Phencyclidine Scrn Negative (CUTOFF=25) Ur Amphetamine Screen Negative (ONMOPE=885) U Methamphetamines Scrn Negative (PJLLSQ=687) U Benzodiazepines Scrn Presumptive positive H (POJKTR=510) U Cocaine Metab Screen Negative (IZLIUC=877) U Marijuana (THC) Screen Negative (CUTOFF=50) Ethyl Alcohol (0.00) gm% 10/03/20 Range/Units 12:20 WBC (4.23-9.07) K/mm3 RBC (4.63-6.08) M/mm3 Hgb (13.7-17.5) gm/dl Hct (40.1-51.0) % MCV (79.0-92.2) fl MCH (25.7-32.2) pg MCHC (32.2-35.5) g/dl RDW Std Deviation (35.1-43.9) fL Plt Count (163-337) K/mm3 MPV (9.4-12.3) fl Neut % (Auto) (34.0-67.9) % Lymph % (Auto) (21.8-53.1) % [place] % (Auto) (5.3-12.2) % Eos % (Auto) (0.8-7.0) Baso % (Auto) (0.1-1.2) % Neut # (Auto) (1.78-5.38) K/mm3 Lymph # (Auto) (1.32-3.57) K/mm3 [place] # (Auto) (0.30-0.82) K/mm3 Eos # (Auto) (0.04-0.54) K/mm3 Baso # (Auto) (0.01-0.08) K/mm3 Sodium (136-145) mEq/L Potassium (3.5-5.1) mEq/L Chloride (98-107) mEq/L Carbon Dioxide (21-32) mEq/L Anion Gap (5-15) BUN (7-18) mg/dL Creatinine (0.7-1.3) mg/dL Est Cr Clr Drug Dosing mL/min Estimated GFR (MDRD) (>60) mL/min BUN/Creatinine Ratio (14-18) Glucose (70-99) mg/dL Calcium (8.5-10.1) mg/dL Magnesium (1.8-2.4) mg/dL Total Bilirubin (0.2-1.0) mg/dL AST (15-37) U/L ALT (16-63) U/L Alkaline Phosphatase (46-116) U/L Total Protein (6.4-8.2) g/dl Albumin (3.4-5.0) g/dl Globulin gm/dL Albumin/Globulin Ratio (1-2) Urine Opiates Screen (EVHZNC=745) Ur Buprenorphine Scrn (CUTOFF=10) Ur Oxycodone Screen (WYI2QZ=731) Urine Methadone Screen (AVP7NU=639) Ur Propoxyphene Screen (KWRBVY=805) Ur Barbiturates Screen (QSYEIK=880) Ur Tricyclics Screen (PMSLZL=628) Ur Phencyclidine Scrn (CUTOFF=25) Ur Amphetamine Screen (FKHMLU=351) U Methamphetamines Scrn (EZNTZP=689) U Benzodiazepines Scrn (HOXPBL=650) U Cocaine Metab Screen (WGGWQP=907) U Marijuana (THC) Screen (CUTOFF=50) Ethyl Alcohol 0.00 (0.00) gm% Meds: Medications Discontinued Medications Generic Name Dose Route Start Last Admin Trade Name Freq PRN Reason Stop Dose Admin Lorazepam 1 mg 10/03/20 12:12 10/03/20 12:21 Lorazepam 0.5 Mg Tab PO 10/03/20 12:13 1 mg ONETIME ONE Administration - Re-Assessments/Exams Free Text/Narrative Re-Assessment/Exam: 10/03/20 12:20 Patient presents to the ER from [facility] for medical clearance. We will repeat some labs, repeat CIWA scale so we have a baseline of where he is at, and then try to determine disposition. Patient will get 1 mg Ativan while being in the ER. 10/03/20 13:35 Have been in contact with [facility] however I am awaiting callback from their staff as they were busy at this moment. Patient's labs have resulted, CBC is essentially unremarkable, CMP demonstrates a mildly elevated blood sugar, slightly elevated liver enzymes, magnesium low at 1.6 which is likely nutritional. Patient's blood alcohol level is 0.00, and urine drug screen is positive for benzodiazepines presumptively. Which would be concurrent with the medications he was prescribed. Nursing staff did get his CIWAA scale at 7. Plan is to hopefully await [facility] call, and discharge the patient into their care and have him return to the ER if his symptoms should change or worsen. Departure - Departure Time of Disposition: 13:58 Disposition: DC/Tfer to Other 70 Condition: Good Clinical Impression: Alcohol withdrawal syndrome Qualifiers: Complication of substance-induced condition: uncomplicated Qualified Code(s): F10.230 - Alcohol dependence with withdrawal, uncomplicated - Discharge Information *PRESCRIPTION DRUG MONITORING PROGRAM REVIEWED*: Yes *COPY OF PRESCRIPTION DRUG MONITORING REPORT IN PATIENT PETER: No Prescriptions: LORazepam [Ativan] 1 mg PO ASDIRECTED #5 tab Ondansetron [Zofran ODT] 4 mg PO Q8H #10 tab.dis Instructions: Alcohol Withdrawal Syndrome, [id number] Referrals: Troy Velazquez MD [Primary Care Provider] - Forms: ED Department Discharge Additional Instructions: You were evaluated in the ER today for your alcohol withdrawal symptoms. Laboratory evaluation was done at today's visit, your blood alcohol level is 0.00, and there are no other worrisome abnormalities on lab values. You were given 2 prescriptions, you will need to continue taking Ativan, dosing will be 1 tablet 3 times a day x2 days, 1 tablet 2 times a day x2 days, then 1 tablet daily x2 days. You were given a prescription for Zofran as well, you will need to take 1 tablet every 8 hours for nausea. Otherwise please continue all of the prescriptions as previously prescribed. This would be for the omeprazole. Upon discharge, you will need to meat pickler these prescriptions at the [place] pharmacy located in the [facility] [employer] store, and then go directly to [facility], for ongoing alcohol outpatient management. There is a staff member that will be waiting for you, for intake purposes. Please return to the ER at any time if symptoms change or worsen. Sepsis Event Note (ED) - Evaluation Sepsis Screening Result: No Definite Risk - Focused Exam Vital Signs: Vital Signs Temp Pulse Resp BP Pulse Ox 10/03/20 11:54 96.9 F 122 H 20 137/87 98
[2020-10-03 14:50] VITALS: PULSE 65
== END 2020-10-03 14:48 | disposition other institution (70) ==
LOC: JD.ED 11:46
DX: F10.230 Alcohol dependence with withdrawal, uncomplicated (principal); Z72.0 Tobacco use; Z79.899 Other long term (current) drug therapy
CPT/HCPCS: 36415; 80053; 80306; 80307; 83735; 85025; 99285; A9270; 99283

== ENCOUNTER 2021-02-26 12:30 | Emergency (ER) | payer SELFPAY ==
[2021-02-26] MEDS ORDERED: Sodium Chloride 0.9% 10 ML Syringe FLUSH PRN (12:46)
[2021-02-26] MEDS ORDERED: LORazepam 2 MG/ML SDV IVPUSH ONE (12:48)
--- NOTE | 2021-02-26 13:13 | CT ---
Head CT Technique: Multiple axial sections through the brain were obtained. Intravenous contrast was not utilized. Reconstructed coronal and sagittal images were obtained. Comparison: No prior intracranial imaging is available. Findings: Metallic density within the right ear causes significant artifact within the brain. Ventricles along with basal cisterns and sulci over the convexities appear within normal limits. No definite abnormal parenchymal densities are seen. No evidence of intracranial hemorrhage is seen. No midline shift or mass-effect is seen. Bone window settings were reviewed. No acute calvarial finding is seen. Visualized mastoid sinuses and paranasal sinuses are clear. No acute calvarial abnormality is appreciated. Impression: 1. Significant artifact within the brain secondary to metallic density within the right ear. 2. Within the limitations as noted above, no definite acute intracranial abnormality is appreciated. Diagnostic code #2
[2021-02-26] MEDS ORDERED: Ondansetron 4 MG/2 ML SDV IVPUSH ONE (13:31)
--- NOTE | 2021-02-26 13:58 | EDM.PDOC ---
ED HPI GENERAL MEDICAL PROBLEM - General Chief Complaint: Neurological Problem Stated Complaint: [facility] Time Seen by Provider: 02/26/21 12:37 Source of Information: Reports: Patient, EMS History Limitations: Reports: No Limitations - History of Present Illness INITIAL COMMENTS - FREE TEXT/NARRATIVE: The patient presents by [facility] for a seizure. He was at work and he fell down and had a tonic clonic seizure. He did hit his head on a metal rack when falling down. He was confused when EMS got there. He said something similar happened a few years ago because of a medication he was on. He did not know any more details. He says he does drink a few drinks per day. He has no headache now. He has no fever, chills, cough, chest pain, shortness of breath, abdominal pain, nausea, vomiting, numbness or weakness. Onset: Sudden Duration: Minutes: Location: Reports: Generalized Severity: Moderate Improves with: Reports: None Worsens with: Reports: None Associated Symptoms: Reports: No Other Symptoms Headache Pain Score (Numeric/FACES): 3 - Related Data Allergies Allergy/AdvReac Type Severity Reaction Status Date / Time bupropion [From Wellbutrin] AdvReac Severe Seizure Verified 10/03/20 11:55 Home Meds: Home Meds LORazepam [Ativan] 1 mg PO DAILY #18 tablet 02/26/21 [Rx] Ondansetron [Zofran ODT] 4 mg PO Q6H PRN #20 tab.dis 02/26/21 [Rx] Past Medical History - Past Health History Medical/Surgical History: Denies Medical/Surgical History Cardiovascular History: Reports: Other (See Below) Other Cardiovascular History: palpitations Gastrointestinal History: Reports: Gastritis Neurological History: Reports: Concussion, Seizure Other Neuro History: seizure related to wellbutron Psychiatric History: Reports: ADHD, Addiction, Depression - Past Surgical History HEENT Surgical History: Reports: Oral Surgery Other HEENT Surgeries/Procedures: wisdom teeth removal Social & Family History - Family History Family Medical History: No Pertinent Family History - Tobacco Use Tobacco Use Status *Q: Current Every Day Tobacco User Years of Tobacco use: 10 Packs/Tins Daily: 0.2 - Caffeine Use Caffeine Use: Reports: Coffee, Soda, Tea - Recreational Drug Use Recreational Drug Use: No - Living Situation & Occupation Living situation: Reports: , with Significant Other (Girlfriend) Occupation: Employed ([employer]) ED ROS GENERAL - Review of Systems Review Of Systems: See Below Constitutional: Reports: No Symptoms HEENT: Reports: No Symptoms Respiratory: Reports: No Symptoms Cardiovascular: Reports: No Symptoms Endocrine: Reports: No Symptoms GI/Abdominal: Reports: No Symptoms : Reports: No Symptoms Musculoskeletal: Reports: No Symptoms Skin: Reports: No Symptoms Neurological: Reports: Seizure - Physical Exam Exam: See Below Exam Limited By: No Limitations General Appearance: Alert, No Apparent Distress Ears: Normal External Exam Throat/Mouth: Normal Inspection Head Exam: Atraumatic, Normocephalic Neck: Normal Inspection, Supple, Non-Tender Respiratory/Chest: No Respiratory Distress, Lungs Clear, Normal Breath Sounds Cardiovascular: Regular Rate, Rhythm, No Edema, No Murmur GI/Abdominal: Soft, Non-Tender, No Organomegaly, No Mass Neuro Exam (Abbreviated): Alert, Oriented, No Motor/Sensory Deficits Course - Vital Signs Last Recorded V/S: Last Vital Signs Temp 98.3 F 02/26/21 12:40 Pulse 127 H 02/26/21 12:40 Resp 20 02/26/21 12:40 BP 145/88 H 02/26/21 12:40 Pulse Ox 95 02/26/21 12:40 - Orders/Labs/Meds Orders: Active Orders 24 hr Category Date Time Status Cardiac Monitoring [RC] . DIRECTED Care 02/26/21 12:46 Active Peripheral IV Care [RC] . DIRECTED Care 02/26/21 12:47 Active Sodium Chloride 0.9% [Saline Flush] Med 02/26/21 12:46 Active 10 ml FLUSH ASDIRECTED PRN Peripheral IV Insertion Adult [OM.PC] Stat Oth 02/26/21 12:46 Ordered Medication Orders Sodium Chloride (Sodium Chloride 0.9% 10 Ml Syringe) 10 ml FLUSH ASDIRECTED PRN PRN Reason: Keep Vein Open Last Admin: 02/26/21 13:02 Dose: 10 ml Documented by: NAT Labs: Laboratory Tests 02/26/21 02/26/21 Range/Units 13:17 13:17 WBC 4.54 (4.23-9.07) K/mm3 RBC 4.42 L (4.63-6.08) M/mm3 Hgb 14.0 D (13.7-17.5) gm/dl Hct 41.5 (40.1-51.0) % MCV 93.9 H (79.0-92.2) fl MCH 31.7 (25.7-32.2) pg MCHC 33.7 (32.2-35.5) g/dl RDW Std Deviation 45.8 H (35.1-43.9) fL Plt Count 134 L (163-337) K/mm3 MPV 9.2 L (9.4-12.3) fl Neut % (Auto) 77.8 H (34.0-67.9) % Lymph % (Auto) 12.1 L (21.8-53.1) % [place] % (Auto) 8.6 (5.3-12.2) % Eos % (Auto) 0.4 L (0.8-7.0) Baso % (Auto) 0.9 (0.1-1.2) % Neut # (Auto) 3.53 (1.78-5.38) K/mm3 Lymph # (Auto) 0.55 L (1.32-3.57) K/mm3 [place] # (Auto) 0.39 (0.30-0.82) K/mm3 Eos # (Auto) 0.02 L (0.04-0.54) K/mm3 Baso # (Auto) 0.04 (0.01-0.08) K/mm3 Sodium 139 (136-145) mEq/L Potassium 3.8 (3.5-5.1) mEq/L Chloride 97 L (98-107) mEq/L Carbon Dioxide 24 (21-32) mEq/L Anion Gap 21.8 H (5-15) BUN 11 (7-18) mg/dL Creatinine 1.0 (0.7-1.3) mg/dL Est Cr Clr Drug Dosing 108.67 mL/min Estimated GFR (MDRD) > 60 (>60) mL/min BUN/Creatinine Ratio 11.0 L (14-18) Glucose 182 H (70-99) mg/dL Calcium 9.4 (8.5-10.1) mg/dL Magnesium 1.4 L (1.8-2.4) mg/dL Total Bilirubin 1.8 H (0.2-1.0) mg/dL AST 208 H (15-37) U/L ALT 165 H (16-63) U/L Alkaline Phosphatase 78 (46-116) U/L Total Protein 7.8 (6.4-8.2) g/dl Albumin 4.5 (3.4-5.0) g/dl Globulin 3.3 gm/dL Albumin/Globulin Ratio 1.4 (1-2) Ethyl Alcohol 0.00 (0.00) gm% Meds: Medications Generic Name Dose Route Start Last Admin Trade Name Freq PRN Reason Stop Dose Admin Sodium Chloride 10 ml 02/26/21 12:46 02/26/21 13:02 Sodium Chloride 0.9% 10 Ml Syringe FLUSH 10 ml ASDIRECTED PRN Administration Keep Vein Open Discontinued Medications Generic Name Dose Route Start Last Admin Trade Name Ekaterina PRN Reason Stop Dose Admin Lorazepam 1 mg 02/26/21 12:48 02/26/21 13:01 Lorazepam 2 Mg/Ml Sdv IVPUSH 02/26/21 12:49 1 mg ONETIME ONE Administration Ondansetron HCl 4 mg 02/26/21 13:31 02/26/21 13:35 Ondansetron 4 Mg/2 Ml Sdv IVPUSH 02/26/21 13:32 4 mg ONETIME ONE Administration - Re-Assessments/Exams Free Text/Narrative Re-Assessment/Exam: 02/26/21 13:53 I ordered an IV saline lock, ativan 1mg IV, labs and a CT of his head. 02/26/21 13:[address] of the head shows significant artifact within the brain secondary to metallic density within the right ear. Within the limitations as noted above, no definitive acute intracranial abnormality is appreciated. His CBC looks good except for low platelet at 134. 02/26/21 15:08 His anion gap is elevated at 21.8. his glucose was 182. His magnesium was a little low at 1.4. His total bili was 1.8. His AST was elevated at 208. His ALT is elevated at 165. His ETOH is 0. He is shaking slightly now. I feel this may be alcohol withdrawal seizure. He does admit to drinking more lately. I will have him not drive fo 3 to 6 months and get him on ativan and zofran for any withdrawals. Departure - Departure Time of Disposition: 15:15 Disposition: Home, Self-Care 01 Condition: Good Clinical Impression: Seizure Alcohol withdrawal seizure Qualifiers: Complication of substance-induced condition: uncomplicated Qualified Code(s): F10.230 - Alcohol dependence with withdrawal, uncomplicated; R56.9 - Unspecified convulsions - Discharge Information *PRESCRIPTION DRUG MONITORING PROGRAM REVIEWED*: Not Applicable *COPY OF PRESCRIPTION DRUG MONITORING REPORT IN PATIENT PETER: Not Applicable Prescriptions: LORazepam [Ativan] 1 mg PO DAILY #18 tablet Ondansetron [Zofran ODT] 4 mg PO Q6H PRN #20 tab.dis PRN Reason: Nausea\vomiting Referrals: PCP,None [Primary Care Provider] - Stanley Castillo MD [Physician] - 1 Week Forms: ED Department Discharge Additional Instructions: Drink plenty of water or powerade. Do not drink alcohol. Take ativan 3 times per day for 3 days then 2 times per day for 3 days and then at night for 3 days. Take zofran every 6 hours as needed for nausea and vomiting. Follow up with Dr Castillo within a week. [facility] with [facility] to help stop drinking. Do not drive for 3 to 6 months just incase you have another seizure so you don't hurt yourself or someone else. Please return if you are worse. Sepsis Event Note (ED) - Focused Exam Vital Signs: Vital Signs Temp Pulse Resp BP Pulse Ox 02/26/21 12:40 98.3 F 127 H 20 145/88 H 95 - My Orders Last 24 Hours: My Active Orders 02/26/21 12:46 Cardiac Monitoring [RC] . DIRECTED Sodium Chloride 0.9% [Saline Flush] 10 ml FLUSH ASDIRECTED PRN Peripheral IV Insertion Adult [OM.PC] Stat 02/26/21 12:47 Peripheral IV Care [RC] . DIRECTED - Assessment/Plan Last 24 Hours: My Active Orders 02/26/21 12:46 Cardiac Monitoring [RC] . DIRECTED Sodium Chloride 0.9% [Saline Flush] 10 ml FLUSH ASDIRECTED PRN Peripheral IV Insertion Adult [OM.PC] Stat 02/26/21 12:47 Peripheral IV Care [RC] . DIRECTED
[2021-02-26 15:39] VITALS: BP 114/86; PULSE 114
== END 2021-02-26 15:37 | disposition home or self-care (01) ==
LOC: JD.ED 12:30
DX: R56.9 Unspecified convulsions (principal); F10.230 Alcohol dependence with withdrawal, uncomplicated; Z88.8 Allergy status to other drugs, medicaments and biological substances; Z72.0 Tobacco use; Y90.0 Blood alcohol level of less than 20 mg/100 ml
CPT/HCPCS: 36415; 70450; 80053; 80307; 83735; 85025; 96374; 96375; 99285; J2060; J2405

== ENCOUNTER 2021-07-03 17:15 | Emergency (ER) | payer SELFPAY ==
[2021-07-03 18:39] LABS: ACETAMINOPHEN 0 ug/mL (10-30)
[2021-07-03] MEDS ORDERED: Sodium Chloride 0.9% 1,000 ML IV STA (18:42)
[2021-07-03 22:22] VITALS: BP 122/72; PULSE 114
== END 2021-07-03 23:00 | disposition home or self-care (01) ==
LOC: JD.ED 17:15
DX: F10.10 Alcohol abuse, uncomplicated (principal); Y90.5 Blood alcohol level of 100-119 mg/100 ml; Z72.0 Tobacco use
CPT/HCPCS: 36415; 80053; 80143; 80179; 80306; 80307; 84443; 85007; 85027; 93005; 99284; J7030

== ENCOUNTER 2021-08-10 16:00 | Emergency (ER) | payer SELFPAY ==
[2021-08-10] MEDS ORDERED: Ondansetron 4 MG/2 ML SDV IVPUSH ONE (16:43)
[2021-08-10] MEDS ORDERED: Sodium Chloride 0.9% 10 ML Syringe FLUSH PRN (16:43)
[2021-08-10] MEDS ORDERED: LORazepam 2 MG/ML SDV IVPUSH ONE ×3 (16:44→19:19)
[2021-08-10] MEDS ORDERED: Sodium Chloride 0.9% 1,000 ML IV SCH (16:45)
[2021-08-10] MEDS ORDERED: Sodium Chloride 0.9% 1,000 ML IV ONE (19:06)
[2021-08-10 19:30] VITALS: BP 111/90; PULSE 81
== END 2021-08-10 20:45 | disposition home or self-care (01) ==
LOC: JD.ED 16:00
DX: R56.9 Unspecified convulsions (principal); F10.230 Alcohol dependence with withdrawal, uncomplicated; Z88.8 Allergy status to other drugs, medicaments and biological substances; Z79.899 Other long term (current) drug therapy
CPT/HCPCS: 36415; 73564; 80053; 80306; 80307; 83690; 83735; 85025; 96374; 96375; 96376; 99285; J2060; J2405; J3490; J7030; 99284

== ENCOUNTER 2021-09-05 19:47 | Emergency (ER) | payer SELFPAY ==
[2021-09-05 20:05] VITALS: BP 134/92; PULSE 130
[2021-09-05 21:45] LABS: ACETAMINOPHEN 0 ug/mL (10-30)
== END 2021-09-06 00:09 | disposition other institution (70) ==
LOC: JD.ED 19:47
DX: F10.10 Alcohol abuse, uncomplicated (principal); F17.210 Nicotine dependence, cigarettes, uncomplicated; Z88.8 Allergy status to other drugs, medicaments and biological substances; Z79.899 Other long term (current) drug therapy; Z20.822 Contact with and (suspected) exposure to COVID-19
CPT/HCPCS: 36415; 80053; 80143; 80179; 80306; 80307; 84443; 85007; 85027; 93005; 93010; 99284; 99285-25; U0002

== ENCOUNTER 2021-09-17 14:23 | Emergency (ER) | payer SELFPAY ==
[2021-09-17] MEDS ORDERED: Sodium Chloride 0.9% 10 ML Syringe FLUSH PRN (15:02)
[2021-09-17] MEDS ORDERED: Sodium Chloride 0.9% 1,000 ML IV ONE ×4 (15:02→20:08)
[2021-09-17 15:05] VITALS: BP 111/74; PULSE 94
[2021-09-17 15:54] LABS: ESTIMATED GFR > 60 mL/min (>60)
[2021-09-17] MEDS ORDERED: LORazepam 2 MG/ML SDV IVPUSH ONE (17:53)
[2021-09-17] MEDS ORDERED: Metoclopramide 10 MG/2 ML SDV IVPUSH ONE (17:54)
== END 2021-09-17 23:00 | disposition home or self-care (01) ==
LOC: JD.ED 14:23
DX: F10.10 Alcohol abuse, uncomplicated (principal); F17.210 Nicotine dependence, cigarettes, uncomplicated; Z88.8 Allergy status to other drugs, medicaments and biological substances; Y90.2 Blood alcohol level of 40-59 mg/100 ml
CPT/HCPCS: 36415; 80053; 80307; 83735; 85025; 85610; 96374; 96375; 99283; J2060; J2765; J3490; J7030

== ENCOUNTER 2021-10-08 15:24 | Emergency (ER) | payer MEDICAID ==
[2021-10-08 16:32] VITALS: BP 113/75; PULSE 86
[2021-10-08] MEDS ORDERED: Ondansetron 4 MG/2 ML SDV IVPUSH ONE (16:52)
[2021-10-08] MEDS ORDERED: Sodium Chloride 0.9% 10 ML Syringe FLUSH PRN (16:52)
[2021-10-08] MEDS ORDERED: Sodium Chloride 0.9% 1,000 ML IV ONE (16:52)
== END 2021-10-08 18:42 | disposition home or self-care (01) ==
LOC: JD.ED 15:24
DX: F10.120 Alcohol abuse with intoxication, uncomplicated (principal); F17.210 Nicotine dependence, cigarettes, uncomplicated; Z88.8 Allergy status to other drugs, medicaments and biological substances; Y90.1 Blood alcohol level of 20-39 mg/100 ml
CPT/HCPCS: 36415; 80053; 80307; 85025; 96374; 99284; J2405; J3490; J7030; 99282

== ENCOUNTER 2021-10-21 00:11 | Emergency (ER) | payer MEDICAID ==
[2021-10-21] MEDS ORDERED: Ondansetron 4 MG Tab.DIS PO ONE (01:15)
[2021-10-21] MEDS ORDERED: hydrOXYzine HCl 25 MG Tab PO ONE (02:03)
[2021-10-21 05:56] VITALS: BP 112/75; PULSE 109
== END 2021-10-21 06:40 | disposition home or self-care (01) ==
LOC: JD.ED 00:11
DX: F10.920 Alcohol use, unspecified with intoxication, uncomplicated (principal); R45.851 Suicidal ideations; Z88.8 Allergy status to other drugs, medicaments and biological substances; Z79.899 Other long term (current) drug therapy
CPT/HCPCS: 36415; 80053; 80143; 80179; 80306; 80307; 84443; 85025; 93005; 99285; A9270; 93010; 99284

== ENCOUNTER 2021-11-15 04:13 | Emergency (ER) | payer MEDICAID ==
[2021-11-15 04:36] VITALS: BP 121/84; PULSE 95
[2021-11-15] MEDS ORDERED: Ondansetron 4 MG Tab.DIS PO ONE (05:05)
[2021-11-15] MEDS ORDERED: hydrOXYzine HCl 25 MG Tab PO ONE (05:05)
[2021-11-15 05:34] LABS: ESTIMATED GFR 121 mL/min (>60)
[2021-11-15 05:38] LABS: ACETAMINOPHEN 0 ug/mL (10-30)
== END 2021-11-15 13:20 | disposition other institution (70) ==
LOC: JD.ED 04:13
DX: F10.20 Alcohol dependence, uncomplicated (principal); R45.851 Suicidal ideations; F17.210 Nicotine dependence, cigarettes, uncomplicated; Z88.8 Allergy status to other drugs, medicaments and biological substances; Z79.899 Other long term (current) drug therapy
CPT/HCPCS: 36415; 80053; 80143; 80179; 80306; 80307; 85025; 99285; A9270

== ENCOUNTER 2021-12-13 14:52 | Emergency (ER) | payer MEDICAID ==
[2021-12-13] MEDS ORDERED: Sodium Chloride 0.9% 10 ML Syringe FLUSH PRN (15:13)
[2021-12-13] MEDS ORDERED: Sodium Chloride 0.9% 1,000 ML IV ONE ×3 (15:13→18:25)
[2021-12-13] MEDS ORDERED: LORazepam 2 MG/ML SDV IVPUSH ONE ×2 (15:23→18:28)
[2021-12-13 15:52] LABS: ESTIMATED GFR 86 mL/min (>60)
[2021-12-13 15:53] LABS: ACETAMINOPHEN 0 ug/mL (10-30)
[2021-12-13 20:06] VITALS: BP 125/93; PULSE 85
== END 2021-12-13 19:55 | disposition home or self-care (01) ==
LOC: JD.ED 14:52
DX: F10.230 Alcohol dependence with withdrawal, uncomplicated (principal); F17.210 Nicotine dependence, cigarettes, uncomplicated; Z79.899 Other long term (current) drug therapy; Z88.8 Allergy status to other drugs, medicaments and biological substances; Z20.822 Contact with and (suspected) exposure to COVID-19
CPT/HCPCS: 36415; 70450; 72125; 80053; 80143; 80175; 80179; 80306; 80307; 81001; 83605; 83735; 84443; 85025; 86140; 87635; 96361; 96374; 96376; 99285; J2060; J3490; J7030; 99282; U0002

== ENCOUNTER 2022-01-11 02:36 | Emergency (ER) | payer MEDICAID ==
[2022-01-11] MEDS ORDERED: Lactated Ringers 1,000 ML IV ONE (02:59)
[2022-01-11] MEDS ORDERED: LORazepam 2 MG/ML SDV IVPUSH ONE ×2 (02:59→11:17)
[2022-01-11] MEDS ORDERED: Ondansetron 4 MG/2 ML SDV IVPUSH ONE (02:59)
[2022-01-11] MEDS ORDERED: Pantoprazole 40 MG Vial IVPUSH ONE (02:59)
[2022-01-11 12:06] VITALS: BP 106/61; PULSE 86
== END 2022-01-11 12:00 | disposition home or self-care (01) ==
LOC: JD.ED 02:36
DX: F10.920 Alcohol use, unspecified with intoxication, uncomplicated (principal); Z72.0 Tobacco use
CPT/HCPCS: 36415; 80053; 80306; 80307; 82009; 85025; 85610; 96361; 96374; 96375; 96376; 99284; C9113; J2060; J2405; J7120; 99283